=== PATIENT | female | born 1960 | race Caucasian/White ===

== ENCOUNTER → 2018-04-10 09:44 | Outpatient (REF) | payer OTHER, SELFPAY | LOC: LAB 09:44 | PROVIDERS: Visit Provider Physician Assistant | DX: Z00.00 Encounter for general adult medical examination without abnormal findings (principal); Z12.31 Encounter for screening mammogram for malignant neoplasm of breast | CPT/HCPCS: 82274 ==

== ENCOUNTER → 2018-07-28 12:52 | Outpatient (CLI) | payer OTHER, SELFPAY ==
--- NOTE | 2018-07-28 12:53 | DI.MG.S_ITS ---
BILATERAL DIGITAL SCREENING MAMMOGRAM 3D/2D WITH CAD: 07/28/2018 CLINICAL: Routine screening. Family history of breast cancer. Comparison is made to exams dated: 12/25/2014 mammogram, 03/27/2012 mammogram - [facility], and 08/04/2006 mammogram - [facility]. There are scattered fibroglandular elements in both breasts. Current study was also evaluated with a Computer Aided Detection (CAD) system. There is an asymmetry in the left breast middle depth outer region seen on the craniocaudal view only. There is possible architectural distortion associated with the asymmetry, best seen on [facility] tomosynthesis slice 22/59. No other significant masses, calcifications, or other findings are seen in either breast. IMPRESSION: INCOMPLETE: NEEDS ADDITIONAL IMAGING EVALUATION The asymmetry in the left breast is indeterminate. Additional views with possible ultrasound are recommended. This exam was interpreted at Station ID: [id number]. NOTE: For mammograms, a report in lay terms will be sent to the patient. Approximately 15% of breast malignancies will not be visualized mammographically. In the management of a palpable breast mass, a negative mammogram must not discourage biopsy of a clinically suspicious lesion. Electronically Signed By: Eugene Potter M.D. ecl/:08/01/2018 03:01:41 copy to: Lyle Quiros letter sent: Additional Imaging Needed ACR BI-RADS Category 0: Incomplete 3340F
== END ==
PROVIDERS: PCP Physician Assistant; Visit Provider Physician Assistant
DX: Z12.31 Encounter for screening mammogram for malignant neoplasm of breast (principal); Z80.3 Family history of malignant neoplasm of breast
CPT/HCPCS: 77063; 77067

== ENCOUNTER → 2018-08-23 13:51 | Outpatient (CLI) | payer OTHER, SELFPAY ==
--- NOTE | 2018-08-23 | DI.MG.S_ITS ---
UNILATERAL LEFT DIGITAL DIAGNOSTIC MAMMOGRAM 3D/2D WITH ADDITIONAL VIEWS: 08/23/2018 CLINICAL: Additional evaluation requested from prior study. Comparison is made to exams dated: 07/28/2018 mammogram, 12/25/2014 mammogram, and 03/27/2012 mammogram - [facility]. There are scattered fibroglandular elements in left breast. Previously noted asymmetry in the left breast middle depth outer region seen on the craniocaudal view only on comparison screening mammogram persists with additional views. On tomosynthesis views this asymmetry localized to the lateral left breast along the 2-4 o'clock radians. No other significant masses, calcifications, or other findings are seen in the breast. IMPRESSION: INCOMPLETE: NEEDS ADDITIONAL IMAGING EVALUATION Previously noted asymmetry in the left breast middle depth outer region seen on the craniocaudal view only on comparison screening mammogram persists with additional views. On tomosynthesis views this asymmetry localized to the lateral left breast along the 2-4 o'clock radians. A targeted ultrasound is recommended and will be performed immediately following this exam. This exam was interpreted at Station ID: [id number]. NOTE: For mammograms, a report in lay terms will be sent to the patient. Approximately 15% of breast malignancies will not be visualized mammographically. In the management of a palpable breast mass, a negative mammogram must not discourage biopsy of a clinically suspicious lesion. Electronically Signed By: Eugene Potter M.D. ecl/:08/23/2018 23:30:26 copy to: Lyle Quiros letter sent: Additional Imaging Needed ACR BI-RADS Category 0: Incomplete 3340F
--- NOTE | 2018-08-23 13:52 | DI.US.S_ITS ---
LIMITED ULTRASOUND OF LEFT BREAST: 08/23/2018 CLINICAL: Patient returns today to evaluate an asymmetry in the left breast. Comparison is made to exams dated: 08/23/2018 mammogram, 07/28/2018 mammogram, 12/25/2014 mammogram, 03/27/2012 mammogram - [facility], and 08/04/2006 mammogram - [facility]. Real-time and Doppler ultrasound of the left breast outer aspect were performed. Lea scale images of the real-time examination were reviewed. There is a 0.6 x 0.5 x 0.5 cm oval circumscribed anechoic cyst with increased through transmission and no vascularity on Doppler ultrasound located in the left breast at 2 o'clock 4 cm from the nipple. This appears to correlate with the finding seen on mammography. IMPRESSION: BENIGN 0.6 cm simple cyst in the left breast is benign. There is no sonographic evidence of malignancy in the imaged left breast. Return to annual mammogram screening schedule is recommended.(07/29/2019) The patient is advised to monitor her breasts and to return sooner for re-evaluation should she feel anything grow or change. This exam was interpreted at Station ID: [id number]. Electronically Signed By: Eugene Potter M.D. ecl/:08/23/2018 23:33:54 copy to: Lyle Quiros letter sent: Normal Exam Ultrasound BI-RADS: 2 Benign
== END ==
PROVIDERS: Visit Provider Physician Assistant
DX: R92.8 Other abnormal and inconclusive findings on diagnostic imaging of breast (principal); N60.02 Solitary cyst of left breast
CPT/HCPCS: 76642; 77065; G0279